=== PATIENT | male | born 1985 | race Caucasian/White ===

== ENCOUNTER 2020-02-27 06:07 | Day surgery (SDC) | payer SELFPAY ==
[~2020-02-27] VITALS: Ht 180.3 cm; Wt 83.0 kg
--- NOTE | 2020-02-27 06:41 | NUR ---
Ambulatory in Day Surgery History, Chart, Medications and Allergies reviewed before start of procedure. Lungs clear T/O to Auscultation. Pre-Op teaching done. Pt verbalizes understanding.
--- NOTE | 2020-02-27 09:12 | NUR ---
PT TO STEP. DENIES PAIN OR NAUSEA.
--- NOTE | 2020-02-27 09:18 | NUR ---
WRITTEN AND VERBAL D/C INSTUCTIONS GIVEN TO PT WITH STATED UNDERSTANDING. GAUZE IN PLACE, NO DRAINAGE NOTED.
== END 2020-02-27 09:33 | disposition home or self-care (01) ==
LOC: ORSCMMR 06:07
DX: K61.0 Anal abscess (principal); K60.5 Anorectal fistula; F17.210 Nicotine dependence, cigarettes, uncomplicated
CPT/HCPCS: J1100; J1885; J2250; J2405; J2704; J3010; J7120